=== PATIENT | male | born 2000 | race Caucasian/White ===

== ENCOUNTER 2023-01-25 18:49 | Emergency (ER) | payer OTHER, SELFPAY | END 2023-01-25 21:03 | disposition left against medical advice (07) | PROVIDERS: Emergency Provider Emergency Medicine; PCP Pediatrics | DX: S99.922A Unspecified injury of left foot, initial encounter (principal); X58.XXXA Exposure to other specified factors, initial encounter; Y93.9 Activity, unspecified; Y92.9 Unspecified place or not applicable; Y99.9 Unspecified external cause status ==